=== PATIENT | female | born 1965 | race Caucasian/White ===

== ENCOUNTER → 2017-11-30 | Outpatient (CLI) | payer OTHER ==
[~2017-11-30] MED LIST: ALL100 PO; ALLO100T70 PO; CETI-176 PO; CHOL100058 PO; CIP500 PO; COCO1000 PO; GEMF600T91 PO; HYDR2TAB74 PO; IBUP-2704 PO; LEV88 PO; LOVA40TA89 PO; MEDR10TA57 PO; MULT1CAP59 PO; NIAC500T85 PO; PRE20 PO
--- NOTE | 2017-11-30 14:21 | RADIOLOGY IMAGING REPORT ---
[place] [facility] [place] AJIT KILLIAN : [id number] MR: [id number] V: [id number] EXAM DATE: ORDERING PHYSICIAN: DANIELLE LOCO TECHNOLOGIST: Huma Roman PROCEDURE:BILATERAL DIGITAL SCREENING MAMMOGRAM WITH CAD ASSISTED INTERPRETATION & 3D TOMOSYNTHESIS COMPARISON:Left breast diagnostic mammogram 12/15/16, Bilateral screening mammogram 11/29/16 and 11/25/15, Right breast Ultrasound 05/29/16 and 11/30/15. INDICATIONS:SCREENING/ASYMPTOMATIC TISSUE DENSITY: Scattered fibroglandular densities. FINDINGS: Views obtained 2D CC & MLO, and corresponding 3D tomography. Right medial breast cyst cluster at 3 o'clock is unchanged from 11/2016, but more prominent sense 2016. An 8mm circumscribed mass in the lower outer quadrant, 11cm from the nipple is unchanged from 2017. Left breast lower inner quadrant circumscribed mass located 8cm from the nipple, 9mm, is unchanged from 2017 & 2015. There is no mammographic finding suspicious for malignancy. DIAGNOSTIC CATEGORY 1--NEGATIVE. RECOMMENDATIONS: ROUTINE MAMMOGRAM AND CLINICAL EVALUATION. IMPRESSION: BIRADS 2: Negative Annual bilateral screening mammogram. Dictated by: Julia Payne M.D. on 11/30/2017 at 9:41 Transcribed by: JOSE on 11/30/2017 at 13:43 Approved by: Julia Payne M.D. on 11/30/2017 at 14:20 [facility]
== END ==
LOC: MAMO 02:03
PROVIDERS: ATTEND Obstetrics & Gynecology
DX: Z12.31 Encounter for screening mammogram for malignant neoplasm of breast (principal); N60.01 Solitary cyst of right breast; N63.13 Unspecified lump in the right breast, lower outer quadrant; N63.24 Unspecified lump in the left breast, lower inner quadrant
CPT/HCPCS: 77063; 77067

== ENCOUNTER 2018-04-11 01:45 | Day surgery (SDC) | payer OTHER ==
[~2018-04-11] VITALS: Ht 167.6 cm; Wt 92.1 kg
[~2018-04-11 01:45] MED LIST changes: +FENO145T36 PO; +LISI20TA29 PO; +METF-411 PO; +ROSU20TA23 PO
[2018-04-11] MEDS ORDERED: LIDOCAINE/SOD BICARB 8.4% SYR ID ONE (07:20)
[2018-04-11] MEDS ORDERED: NORMOSOL R SOLN(*) 1000 ML BAG 1,000 ML IV PRN (07:20)
[2018-04-11] MEDS ORDERED: PROPOFOL EMUL(*) 10MG/ML 20 ML 20 ML ONE (07:25)
[2018-04-11 07:31] VITALS: BP 108/66
[2018-04-11 08:37] VITALS: BP 102/64
[2018-04-11 08:49] VITALS: BP 101/80
[2018-04-11 09:09] VITALS: BP 107/71
[2018-04-11 09:15] VITALS: BP_SYST 115; BP_SYST 116; BP_DIAS 62; BP_DIAS 76
== END 2018-04-11 09:24 | disposition home or self-care (01) ==
LOC: OR 01:45
PROVIDERS: ATTEND Family Medicine
DX: Z12.11 Encounter for screening for malignant neoplasm of colon (principal); D12.3 Benign neoplasm of transverse colon; E11.9 Type 2 diabetes mellitus without complications
CPT/HCPCS: 00811; 36416; 45380; 82948; 88305; J2704

== ENCOUNTER → 2018-12-02 | Outpatient (CLI) | payer OTHER ==
[~2018-12-02] MED LIST changes: -GEMF600T91 PO; +GEMF600T96 PO; -METF-411 PO; +METF-450 PO; -ROSU20TA23 PO; +ROSU20TA24 PO
--- NOTE | 2018-12-03 12:25 | RADIOLOGY IMAGING REPORT ---
FACILITY: [facility] - [place] PATIENT NAME: AJIT KILLIAN : [id number] MR: [id number] V: [id number] EXAM DATE: [id number] ORDERING PHYSICIAN: DANIELLE LOCO TECHNOLOGIST: Koki Brand PROCEDURE:BILATERAL DIGITAL SCREENING MAMMOGRAM WITH CAD ASSISTED INTERPRETATION & 3D TOMOSYNTHESIS COMPARISON:Prior mammograms 11/30/2017, 11/29/2016, 11/25/2015. INDICATIONS:screening FINDINGS: The breast tissue demonstrates scattered fibroglandular densities. In the upper outer quadrant Right breast approximately 10 o'clock posterior depth there is a stable 9mm circumscribed mass unchanged from prior examinations. A small nodular density in the Right breast 3 o'clock position anterior is stable. No new enlarging masses on the Right. The Left breast is negative. TECHNIQUE: BILATERAL CC & MLO 3D TOMOGRAPHIC IMAGES WERE OBTAINED. CAD WAS USED. DIAGNOSTIC CATEGORY 2--BENIGN FINDING. RECOMMENDATIONS: ROUTINE MAMMOGRAM AND CLINICAL EVALUATION IN 1 YR. IMPRESSION: BIRADS 2: Benign finding. Dictated by: Dave Valenzuela M.D. on 12/03/2018 at 10:43 Transcribed by: JOSE on 12/03/2018 at 11:05 Approved by: Dave Valenzuela M.D. on 12/03/2018 at 12:24 [facility]
== END ==
LOC: MAMO 01:14
PROVIDERS: ATTEND Obstetrics & Gynecology
DX: Z12.31 Encounter for screening mammogram for malignant neoplasm of breast (principal); N63.11 Unspecified lump in the right breast, upper outer quadrant; N63.12 Unspecified lump in the right breast, upper inner quadrant
CPT/HCPCS: 77063; 77067